=== PATIENT | male | born 1970 | race Hispanic/Latino ===

== ENCOUNTER 2024-10-15 16:03 | Emergency (ER) | payer OTHER, MEDICAID, SELFPAY ==
[2024-10-15 16:25] VITALS: BP 135/62; PULSE 94; RESP 18; TEMP 35.6; O2SAT 99; BMI 49.6
[2024-10-15 17:13] LABS: COVID-19 CEPHEID 4-PLEX PCR Negative (Negative); Influenza A - CEPHEID Flu A NEGATIVE (NEGATIVE); Influenza B - CEPHEID Flu B NEGATIVE (NEGATIVE); Respiratory Syncytial Virus Negative (Negative)
[2024-10-15 18:35] VITALS: TEMP 36.6
--- NOTE | 2024-10-15 18:41 | ED_ITS ---
HPI - URI/Sore Throat <Vijaya Dorantes PA-C - Last Filed: 10/15/24 18:55> General Chief Complaint: Upper Respiratory Symptoms Stated Complaint: realy bad cold Time Seen by Provider: 10/15/24 18:26 Source: patient Mode of arrival: Ambulatory History of Present Illness HPI Narrative: 54-year-old male with past medical history COPD presents to the ED with 1 week of upper respiratory symptoms. Patient states he has a bad cold, runny nose, cough, increased sputum, sore throat, shortness of breath. Denies fever, chills, chest pain, nausea, vomiting, abdominal pain, diarrhea. Patient states he uses 2 inhalers for his COPD, does not know what the names of the medications are. Related Data Previous Rx's Medication Instructions Recorded albuterol sulfate 90 mcg/actuation 2 puff inhalation Q6H PRN 10/15/24 aerosol inhaler shortness of breath or wheezing #6.7 grams azithromycin 250 mg tablet See Rx Instructions PO .COMPLEX #6 10/15/24 (Zithromax Z-Dejan) tabs prednisone 20 mg tablet 40 mg (2 x 20 mg) PO DAILY 5 days 10/15/24 #10 tabs Allergies Allergy/AdvReac Type Severity Reaction Status Date / Time No Known Drug Allergies Allergy Verified 10/15/24 16:25 Review of Systems <Vijaya Dorantes PA-C - Last Filed: 10/15/24 18:55> Constitutional Constitutional: Denies chills, Denies fatigue, Denies fever(s), Denies frequent falls, Denies lethargy and Denies weakness Eyes Eyes: Denies change in vision, Denies eye discharge, Denies irritation and Denies loss of vision ENT Ears, Nose, Mouth, and Throat: Denies change in voice, Denies dizziness, Reports nasal congestion, Reports nasal discharge, Denies neck pain, Reports sore throat and Denies throat swelling Cardiovascular Cardiovascular: Denies chest pain, Denies irregular heart rhythm, Denies lightheadedness, Denies palpitations, Reports dyspnea, Denies dyspnea on exertion and Denies orthopnea Respiratory Respiratory: Reports cough, Reports dyspnea, Denies dyspnea on exertion and Denies wheezing Gastrointestinal Gastrointestinal: Denies abdominal pain, Denies change in bowel habits, Denies diarrhea, Denies nausea and Denies vomiting Musculoskeletal Musculoskeletal: Denies neck pain and Denies numbness Integumentary/Breasts Skin/Breast: Denies pruritus, Denies erythema, Denies rash and Denies wounds Neurologic Neurologic: Denies behavioral changes, Denies confusion, Denies dizziness, Denies frequent falls, Denies loss of vision, Denies numbness and Denies weakness Psychiatric Psychiatric: Denies anxiety, Denies behavioral changes, Denies confusion, Denies depression, Denies homicidal ideation and Denies suicidal ideation Endocrine Endocrine: Denies fatigue, Denies flushing and Denies palpitations Hematologic/Lymphatic Hematologic/Lymphatic: Denies easy bruising Allergic/Immunologic Allergic/Immunologic: Denies urticaria, Denies throat swelling and Denies wheezing Patient History <Vijaya Dorantes PA-C - Last Filed: 10/15/24 18:55> Social History Smoking Status: Current every day smoker Smoking Status: Current every day smoker tobacco type: cigarettes Substance Use Type: does not use Exam <Vijaya Dorantes PA-C - Last Filed: 10/15/24 18:55> Narrative Exam Narrative: Const General:?cooperative, healthy appearing and comfortable [facility] Head:?normal to inspection Ears:?hearing grossly normal bilaterally Nose:?external nose normal Face and sinus:?normal facial exam and sinuses nontender Mouth:?oral mucosae normal Throat:?posterior oropharynx normal Eyes General:?appearance normal, both eyes and all related structures Neck Neck:?normal visual inspection and no lymphadenopathy noted Resp Effort & Inspection:?normal respiratory effort Auscultation:?clear to auscultation bilaterally Cardio Rate:?regular rate Rhythm:?regular rhythm Neuro General:?patient alert, patient awake and patient oriented x3 Initial Vital Signs Initial Vital Signs: Vital Signs Temperature 96.1 F L 10/15/24 16:25 Pulse Rate 94 H 10/15/24 16:25 Respiratory Rate 18 10/15/24 16:25 Blood Pressure 135/62 10/15/24 16:25 Pulse Oximetry 99 10/15/24 16:25 Oxygen Delivery Method Room Air 10/15/24 16:25 <Linda Haq DO - Last Filed: 10/15/24 19:03> Initial Vital Signs Initial Vital Signs: Vital Signs Temperature 96.1 F L 10/15/24 16:25 Pulse Rate 94 H 12/02/24 16:25 Respiratory Rate 18 10/15/24 16:25 Blood Pressure 135/62 10/15/24 16:25 Pulse Oximetry 99 10/15/24 16:25 Oxygen Delivery Method Room Air 10/15/24 16:25 Course <Vijaya Dorantes PA-C - Last Filed: 10/15/24 18:55> Orders Ordered: ED Orders 10/15/24 16:30 Covid-19 + FLU A/B + RSV - PCR Stat Discontinued Medications Prednisone (Prednisone 20 Mg Tablet) 60 mg PO NOW ONE Stop: 10/15/24 18:34 Last Admin: 10/15/24 18:49 Dose: 60 mg Documented By: SPF Vital Signs Vital signs: Vital Signs - 8 hr 10/15/24 16:25 10/15/24 18:45 Temperature 96.1 F L Pulse Rate 94 H 90 Respiratory Rate 18 18 Blood Pressure 135/62 113/67 Pulse Oximetry 99 95 Oxygen Delivery Method Room Air Room Air <Linda Haq DO - Last Filed: 10/15/24 19:03> Orders Ordered: ED Orders 10/15/24 16:30 Covid-19 + FLU A/B + RSV - PCR Stat Discontinued Medications Prednisone (Prednisone 20 Mg Tablet) 60 mg PO NOW ONE Stop: 10/15/24 18:34 Last Admin: 10/15/24 18:49 Dose: 60 mg Documented By: SPF Vital Signs Vital signs: Vital Signs - 8 hr 10/15/24 16:25 10/15/24 18:45 Temperature 96.1 F L Pulse Rate 94 H 90 Respiratory Rate 18 18 Blood Pressure 135/62 113/67 Pulse Oximetry 99 95 Oxygen Delivery Method Room Air Room Air MDM - URI/Sore Throat <Vijaya Doarntes PA-C - Last Filed: 10/15/24 18:55> Lab Data Labs: Lab Results 10/15/24 Range/Units 16:30 SARS-CoV-2 (PCR) Negative (Negative) Influenza A (RT-PCR) Flu a negative (NEGATIVE) Influenza B (RT-PCR) Flu b negative (NEGATIVE) RSV (PCR) Negative (Negative) MDM Narrative Medical decision making narrative: 54-year-old male with past medical history COPD presents to the ED with 1 week of upper respiratory symptoms. Concern for URI versus COPD exacerbation versus other. Respiratory panel was obtained which was negative for COVID-19 and influenza. Lungs are clear to auscultation. Given that patient has a history of COPD, increased sputum, will treat with prednisone and antibiotics. Also prescribed albuterol, since patient is unable to state if he does have the albuterol inhaler on hand. Recommend Tylenol, ibuprofen for pain. Recommend follow-up with PCP as soon as possible. ED return precautions discussed with patient. Patient verbalized understanding. Medical records reviewed: Yes <Linda Haq DO - Last Filed: 10/15/24 19:03> Lab Data Labs: Lab Results 10/15/24 Range/Units 16:30 SARS-CoV-2 (PCR) Negative (Negative) Influenza A (RT-PCR) Flu a negative (NEGATIVE) Influenza B (RT-PCR) Flu b negative (NEGATIVE) RSV (PCR) Negative (Negative) Discharge Plan Departure Patient Disposition: Home Clinical Impression: Upper respiratory infection Qualifiers: URI type: unspecified viral URI Qualified Code(s): J06.9 - Acute upper respiratory infection, unspecified Instructions: DI for Viral Upper Respiratory Infection -- Adult Activity Restrictions/Additional Instructions: You were evaluated in the ED today for a cold. Your respiratory panel was negative for COVID and influenza. Your symptoms are likely due to a viral upper respiratory infection. It is possible that your COPD could be exacerbated by the cold. You are being given prednisone, antibiotics, albuterol for the next few days. Please take those as prescribed. You may also take Tylenol, ibuprofen for fever and pain. Please follow-up with your PCP as soon as possible. Return to the ED if you have worsening symptoms, chest pain, shortness of breath. Prescriptions: New azithromycin [Zithromax Z-Dejan] 250 mg tablet See Rx Instructions .ROUTE .COMPLEX Qty: 6 0RF Rx Instructions: For 250 mg dose pack: take 500 mg today (day 1), then 250 mg for 4 days (days 2-5) prednisone 20 mg tablet 40 mg PO DAILY 5 Days Qty: 10 0RF albuterol sulfate 90 mcg/actuation HFA aerosol inhaler 2 puff inhalation Q6H PRN (Reason: shortness of breath or wheezing) Qty: 6.7 0RF Stand Alone Forms: Patient Portal/API/Survey ED Sign-out <Linda Haq DO - Last Filed: 10/15/24 19:03> Cosign ED Attending Cosignature Attestation: I was immediately available in the department for consultation.
[2024-10-15 18:45] VITALS: BP 113/67; PULSE 90; RESP 18; O2SAT 95
[2024-10-15] MEDS: predniSONE 20 MG TABLET 60 MG PO (18:49)
== END 2024-10-15 19:04 | disposition home or self-care (01) ==
PROVIDERS: Emergency Medicine; Emergency Provider Student in an Organized Health Care Education/Training Program
DX: J06.9 Acute upper respiratory infection, unspecified (principal); F17.210 Nicotine dependence, cigarettes, uncomplicated
CPT/HCPCS: 87635; 87400 ×2; 87420; 0241U; 99283